=== PATIENT | female | born 1970 | race Hispanic/Latino ===

== ENCOUNTER → 2017-06-13 | Outpatient (CLI) | payer OTHER | LOC: MAMMO 10:47 | PROVIDERS: ATTEND Internal Medicine | DX: Z12.31 Encounter for screening mammogram for malignant neoplasm of breast (principal) | CPT/HCPCS: G0202 ==

== ENCOUNTER → 2019-04-27 | Day surgery (SDC) | payer OTHER ==
[~2019-04-27] MED LIST: FENTANYL CITRATE/PF 100MCG/2 ML INJ ONE; HYOSCYAMINE 0.125 MG TAB ONE; MIDAZOLAM HCL 2 MG/2 ML VIAL ONE; NEXIUM20 MG PO; OMEGA-31000 MG PO; PROPOFOL IV EMULSION 10 MG/ML 50 ML VIAL ONE
--- OUTSIDE RECORDS SUMMARY | 2019-04-27 11:33 | XMS REPORT ---
[facility] Address Unknown Phone Unavailable Care Team Providers Care Global Transportation Manager Name Role Phone Wayne HA Unavailable Unavailable Payers Payer Name Policy Type Policy Number Effective Date Expiration Date Problems This patient has no known problems. Allergies, Adverse Reactions, Alerts Allergy Name Allergy Type Status Severity Reaction(s) Onset Date Inactive Date Treating Clinician Comments No Known Allergies DA Active U 2012-12-16 00:00:00 Medications This patient has no known medications. Results Test Description Test Time Test Comments Text Results Atomic Results Result Comments URINALYSIS COMPLETE 2018-09-28 11:28:00 UA COLOR (test code=COLU) YELLOW YELLOW UA APPEARANCE (test code=APPU) HAZY CLEAR UA GLUCOSE DIPSTICK (test code=DGLUU) norm mg/dL NEGATIVE UA BILIRUBIN DIPSTICK (test code=BILU) NEGATIVE mg/dL NEGATIVE UA KETONE DIPSTICK (test code=KETU) neg mg/dL NEGATIVE UA SPECIFIC GRAVITY (test code=SGU) 1.025 1.001-1.035 UA BLOOD DIPSTICK (test code=STACIE) 10 (Trace) Otilio/uL NEGATIVE UA PH DIPSTICK (test code=MAXIMO) 5.0 5.0-8.0 UA PROTEIN DIPSTICK (test code=PROU) 15 (TRACE) mg/dL Neg-15 UA UROBILINIOGEN DIPSTICK (test code=URO) 1 mg/dL 0.0-0.2 UA NITRITE DIPSTICK (test code=CONSTANCE) NEGATIVE NEGATIVE UA LEUKOCYTE ESTERASE DIPSTICK (test code=LEUU) 25 Sabina/uL (Trace) uL NEGATIVE UA WBC (test code=WBCU) 3-5 per HPF 0-5 UA RBC (test code=RBCU) 0-2 per HPF 0-5 UA EPITHELIAL CELLS (test code=EPIU) MANY per HPF Few UA BACTERIA (test code=BACU) FEW per HPF NONE UA MUCUS (test code=MUCU) MANY per LPF NONE-FEW SPECIMEN COMMENTS: CURINALYSIS W/O [id number] 11:28:00* Test Item Value Reference Range Comments UA MICROSCOPIC NEEDED? (test code=UAMICRO) YES SPECIMEN COMMENTS: CURINALYSIS [id number] 11:09:00* Test Item Value Reference Range Comments UA COLOR (test code=COLU) YELLOW YELLOW UA APPEARANCE (test code=APPU) CLEAR UA GLUCOSE DIPSTICK (test code=DGLUU) norm mg/dL NEGATIVE UA BILIRUBIN DIPSTICK (test code=BILU) NEGATIVE mg/dL NEGATIVE UA KETONE DIPSTICK (test code=KETU) neg mg/dL NEGATIVE UA SPECIFIC GRAVITY (test code=SGU) 1.025 1.001-1.035 UA BLOOD DIPSTICK (test code=STACIE) 10 (Trace) Otilio/uL NEGATIVE UA PH DIPSTICK (test code=MAXIMO) 5.0 5.0-8.0 UA PROTEIN DIPSTICK (test code=PROU) 15 (TRACE) mg/dL Neg-15 UA UROBILINIOGEN DIPSTICK (test code=URO) 1 mg/dL 0.0-0.2 UA NITRITE DIPSTICK (test code=CONSTANCE) NEGATIVE NEGATIVE UA LEUKOCYTE ESTERASE DIPSTICK (test code=LEUU) 25 Sabina/uL (Trace) uL NEGATIVE UA WBC (test code=WBCU) per HPF 0-5 UA RBC (test code=RBCU) per HPF 0-5 UA EPITHELIAL CELLS (test code=EPIU) per HPF Few UA BACTERIA (test code=BACU) per HPF NONE SPECIMEN COMMENTS: CURINALYSIS W/O [id number] 11:09:00* Test Item Value Reference Range Comments UA MICROSCOPIC NEEDED? (test code=UAMICRO) YES SPECIMEN COMMENTS: CURINALYSIS [id number] 11:09:00* Test Item Value Reference Range Comments UA COLOR (test code=COLU) YELLOW YELLOW UA APPEARANCE (test code=APPU) CLEAR UA GLUCOSE DIPSTICK (test code=DGLUU) norm mg/dL NEGATIVE UA BILIRUBIN DIPSTICK (test code=BILU) NEGATIVE mg/dL NEGATIVE UA KETONE DIPSTICK (test code=KETU) neg mg/dL NEGATIVE UA SPECIFIC GRAVITY (test code=SGU) 1.025 1.001-1.035 UA BLOOD DIPSTICK (test code=STACIE) 10 (Trace) Otilio/uL NEGATIVE UA PH DIPSTICK (test code=MAXIMO) 5.0 5.0-8.0 UA PROTEIN DIPSTICK (test code=PROU) 15 (TRACE) mg/dL Neg-15 UA UROBILINIOGEN DIPSTICK (test code=URO) 1 mg/dL 0.0-0.2 UA NITRITE DIPSTICK (test code=CONSTANCE) NEGATIVE NEGATIVE UA LEUKOCYTE ESTERASE DIPSTICK (test code=LEUU) 25 Sabina/uL (Trace) uL NEGATIVE UA WBC (test code=WBCU) per HPF 0-5 UA RBC (test code=RBCU) per HPF 0-5 UA EPITHELIAL CELLS (test code=EPIU) per HPF Few UA BACTERIA (test code=BACU) per HPF NONE SPECIMEN COMMENTS: CURINALYSIS W/O [id number] 11:09:00* Test Item Value Reference Range Comments UA MICROSCOPIC NEEDED? (test code=UAMICRO) YES SPECIMEN COMMENTS: CCOMPREHENSIVE METABOLIC [id number] 09:47:00* Test Item Value Reference Range Comments SODIUM (test code=NA) 142 mmol/L 135-148 POTASSIUM (test code=K) 3.7 mmol/L 3.5-5.1 CHLORIDE (test code=CL) 105 mmol/L 101-109 CARBON DIOXIDE (test code=CO2) 27.6 mmol/L 21-32 ANION GAP (test code=GAP) 13 mmol/L 10-20 GLUCOSE (test code=GLU) 111 mg/dL 74-106 BLOOD UREA NITROGEN (test code=BUN) 13 mg/dL 3-21 CREATININE (test code=CREAT) 0.68 mg/dL 0.55-1.3 BUN/CREATININE RATIO (test code=BUN/CREA) 19.1 10-20 TOTAL PROTEIN (test code=PROT) 7.3 g/dL 6.5-8.4 ALBUMIN (test code=ALB) 3.6 g/dL 3.4-4.8 GLOBULIN (test code=GLOB) 3.7 G/DL 1-10 ALBUMIN/GLOBULIN RATIO (test code=A/G) 1.0 RATIO 0.75-1.50 CALCIUM (test code=CA) 8.5 mg/dL 8.4-10.2 BILIRUBIN TOTAL (test code=BILT) 0.40 mg/dL 0.0-1.0 SGOT/AST (test code=AST) 15 U/L 6-32 SGPT/ALT (test code=ALT) 27 U/L 12-78 Note: Change in REFERENCE RANGE due to new reagent method. ALKALINE PHOSPHATASE TOTAL (test code=ALKP) 87 U/L 38-126 [id number] 09:47:00* Test Item Value Reference Range Comments LIPASE (test code=LIP) 164 U/L 128-270 [id number] 09:47:00* Test Item Value Reference Range Comments MAGNESIUM (test code=MAG) 2.1 mg/dL 1.6-2.3 CPK-MB [id number] 09:47:00* Test Item Value Reference Range Comments CREATINE KINASE (CK) (test code=CK) 260 U/L 26-192 CKMB (test code=CKMBT) 1.9 ng/mL 0.0-5.0 RELATIVE % INDEX (test code=REL%) 0.7 % [id number] 09:47:00* Test Item Value Reference Range Comments TROPONIN-I (test code=TROPI) <0.015 ng/mL 0.00-0.056 PROTHROMBIN [id number] 09:27:00* Test Item Value Reference Range Comments PROTHROMBIN TIME PATIENT (test code=PTP) 10.2 seconds 9.0-13.0 INTERNATIONAL NORMAL RATIO (test code=INR) 0.9 0.8-1.2 The therapeutic range for oral anticoagulant therapy formost indications is an international normalized ratio (INR)of between 2.0 and 3.0. The recommended therapeutic INRrange for various clinical situations is listed below: Clinical Situation INR range Pulmonary e mbolism treatment (2.0-3.0)Venous thrombosis treatmentVenous thrombosis prophylaxis (high risk surgery)Prevention of systemic embolism from: Acute myocardial infarction Valvular heart disease Atrial fibrillation Mechanical prosthetic heart valves (2.5-3.5) IS PATIENT ON ANTICOAGULANTS? NTHROMBOPLASTIN TIME [id number] 09:27:00* Test Item Value Reference Range Comments THROMBOPLASTIN TIME PARTIAL (test code=PTT) 25.0 seconds 25.5-34.3 Therapeutic Range for patients on Heparin Therapy is 2 to2.5 times their baseline PTT level. IS PATIENT ON ANTICOAGULANTS? NCOMPREHENSIVE METABOLIC [id number] 09:27:00 * Test Item Value Reference Range Comments SODIUM (test code=NA) 142 mmol/L 135-148 POTASSIUM (test code=K) 3.7 mmol/L 3.5-5.1 CHLORIDE (test code=CL) 105 mmol/L 101-109 CARBON DIOXIDE (test code=CO2) 27.6 mmol/L 21-32 ANION GAP (test code=GAP) 13 mmol/L 10-20 GLUCOSE (test code=GLU) 111 mg/dL 74-106 BLOOD UREA NITROGEN (test code=BUN) 13 mg/dL 3-21 CREATININE (test code=CREAT) 0.68 mg/dL 0.55-1.3 BUN/CREATININE RATIO (test code=BUN/CREA) 19.1 10-20 TOTAL PROTEIN (test code=PROT) gram/dL 6.4-8.2 ALBUMIN (test code=ALB) g/dL 3.4-5.0 GLOBULIN (test code=GLOB) g/dL 2.7-4.2 ALBUMIN/GLOBULIN RATIO (test code=A/G) 0.75-1.50 CALCIUM (test code=CA) 8.5 mg/dL 8.4-10.2 BILIRUBIN TOTAL (test code=BILT) mg/dL 0.2-1.2 SGOT/AST (test code=AST) IUnit/L 15-37 SGPT/ALT (test code=ALT) U/L 10-69 ALKALINE PHOSPHATASE TOTAL (test code=ALKP) IUnit/L 45-117 [id number] 09:27:00* Test Item Value Reference Range Comments LIPASE (test code=LIP) Unit/L 144-286 [id number] 09:27:00* Test Item Value Reference Range Comments MAGNESIUM (test code=MAG) mg/dL 1.8-2.4 CPK-MB [id number] 09:27:00* Test Item Value Reference Range Comments CREATINE KINASE (CK) (test code=CK) IUnit/L 26-208 CKMB (test code=CKMBT) ng/mL 0-6.0 RELATIVE % INDEX (test code=REL%) % [id number] 09:27:00* Test Item Value Reference Range Comments TROPONIN-I (test code=TROPI) ng/mL 0-0.045 - XR CHEST 1 [id number] 09:26:00 Name: TORREY TRACY [facility] : 1970 Age/S:48 /F [address] [facility] Unit#:[id number] Loc: [place] [address] Phys: Suze Kaiser MD Dis Date: PHONE #: [phone] Status: REG ER FAX #: [phone] Exam Date: 09/28/2018 Reason: CASTILLO, arm tingling EXAMS: CPT CODE: [id number] XR CHEST 1 V 31419 HISTORY: Headache and arm tingling. COMPARISON: None available. No acute infiltrates, effusion or congestion is noted. Suboptimal inspiration with dependent changes. The cardiac and mediastinal silhouette are within normal limits. IMPRESSION: No acute infiltrates, effusion or congestion. at 0926 Reported and signed by: Corey Martin M.D. CC: Suze Kaiser MD Technologist: Tracy Boyer Trnscrpt Data: 09/28/2018 (925) JennifferTH4 PAGE 1 Signed Report CBC W/AUTO [id number] 09:25:00* Test Item Value Reference Range Comments WHITE BLOOD CELL (test code=WBC) 5.7 K/mm3 4.5-12.5 RED BLOOD CELL (test code=RBC) 4.71 mill/mm3 3.7-5.2 HEMOGLOBIN (test code=HGB) 13.6 gram/dL 11.5-15.5 HEMATOCRIT (test code=HCT) 42.5 % 36.0-46.0 MEAN CELL VOLUME (test code=MCV) 90.2 fL 80-98 MEAN CELL HGB (test code=MCH) 28.9 picogram 27.0-33.0 MEAN CELL HGB CONCETRATION (test code=MCHC) 32.0 gram/dL 33.0-36.0 RED CELL DISTRIBUTION WIDTH (test code=RDW) 14.9 % 11.6-16.2 RED CELL DISTRIBUTION WIDTH SD (test code=RDW-SD) 48.7 fL 39.1-52.0 PLATELET COUNT (test code=PLT) 194 K/mm3 150-450 MEAN PLATELET VOLUME (test code=MPV) 10.8 fL 6.7-11.0 NEUTROPHIL % (test code=NT%) 49.5 % 39.0-69.0 LYMPHOCYTE % (test code=LY%) 40.5 % 25.0-55.0 MONOCYTE % (test code=MO%) 7.7 % 0.0-10.0 EOSINOPHIL % (test code=EO%) 1.9 % 0.0-5.0 BASOPHIL % (test code=BA%) 0.4 % 0.0-1.0 NEUTROPHIL # (test code=NT#) 2.83 K/mm3 1.8-7.7 LYMPHOCYTE # (test code=LY#) 2.31 K/mm3 1.0-5.0 MONOCYTE # (test code=MO#) 0.44 K/mm3 0-0.8 EOSINOPHIL # (test code=EO#) 0.11 K/mm3 0.0-0.5 BASOPHIL # (test code=BA#) 0.02 K/mm3 0.0-0.2 MANUAL DIFF REQUIRED (test code=MDIFF) NO - CT HEAD/BRAIN W/O [id number] 09:25:00 Name: TORREY TRACY [facility] : 1970 Age/S: 48 / F [address] [facility] Unit #: [id number] Loc: [place] [address] Phys: Suze Kaiser MD Acct: [id number] Dis Date: Status: REG ER PHONE #: [phone] Exam Date: 09/28/2018917 FAX #: [phone] Reason: CASTILLO, arm tingling EXAMS: CPT CODE: [id number] CT HEAD/BRAIN W/O CONT 23854 HISTORY: Arm tingling. COMPARISON: None available. CT brain without contrast: Automated exposure control. No acute intracranial bleeds or extra-axial collections and there is no acute territorial vascular infarction. Calcified granuloma in the right frontal lobe with. This may represent sequela of cysticercosis. The lucas-white matter differentiation is preserved. The sulci, gyri, ventricles and subarachnoid spaces and the basilar cisterns are normal for patient's age. No herniation or hydrocephalus or midline shift is noted. Fourth ventricle remains midline. Portions of the visualized paranasal sinuses are unremarkable. No obvious bony calvarial defect is noted. IMPRESSION: No acute intracranial bleeds or extra-axial collections. No acute territorial vascular infarction. No herniation or h ydrocephalus or midline shift. at 0925 Reported and thanh d by: Corey Martin M.D. CC: Suze Kaiser MD Technologist:Tracy Boyer CTDI: DLP: Trnscb Date/Time: 09/28/2018 (924) t.SDR.TH4 Orig Print D/T: S: 09/28/2018 (927) PAGE 1 Signed Report MAMMOGRAPHY DIGITAL SCR [place] [address] Patient Name: TORREY TRACY MR #: [id number] : 1970 Age/Sex: 47/F Req #: [id number] Adm Physician: Ordered by: JOSE HA MD Report #: [id number] Location: MAMMO Room/Bed: Procedure: [id number] MG/MAMMOGRAPHY DIGITAL SCR BI LAT Exam Date: 06/13/17 Exam Time: 1050 REPORT STATUS: Signed #[id number] - [id number] #BILATERAL DIGITAL SCREENING M AMMOGRAM WITH CAD: 06/13/2017 CLINICAL: Routine screening. No prior exam s were available for comparison. Current study contains 4 films. There are scattered fibroglandular elements in both breasts. Current study was also ev aluated with a Computer Aided Detection (CAD) system. There are benign calci fications in both breasts. No significant masses, calcifications, or other f indings are seen in either breast. IMPRESSION: BENIGN There is no mammo graphic evidence of malignancy. A 1 year screening mammogram is recommended. The patient will be notified by letter of the results. Terry raines/pj:06/23/2017 11:38:58 Industrial Engineering Director: En OVIEDO(R)(M), [facility] letter sent: Normal Exam Mammogram BI-RADS: 2 Benign Dictated By: TERRY VALLECILLO DO Electro nically Signed By: TERRY VALLECILLO DO on 06/23/17 1138 Transcribed By: PJ on 06/23/17 1138 COPY TO: JOSE HA MD
[2019-04-27 17:05] VITALS: BP 106/74
--- NOTE | 2019-04-27 19:43 | Operative Report ---
DATE OF PROCEDURE: 04/27/2019 SURGEON: Cristofer Blum MD PROCEDURE: Colonoscopy with polypectomy. INDICATIONS FOR COLONOSCOPY: Colorectal cancer screening. MEDICATIONS: The patient was done under MAC, please see anesthesiologist's note. PROCEDURE IN DETAIL: With the patient in left lateral decubitus position, the flexible fiberoptic Olympus colonoscope was inserted into the rectum with ease and advanced all the way to the cecum. It was then withdrawn slowly. Mucosa overlying the cecum and ascending colon appeared to be within normal limits. One polyp was hot biopsied from the proximal transverse colon. The descending appeared to be within normal limits. One polyp was hot biopsied from the distal sigmoid. The rectum appeared to be within normal limits. The scope was then retroflexed into the distal rectum and small internal hemorrhoids were noted, none of which was actively bleeding. The scope was then straightened out. It was subsequently withdrawn. The patient tolerated the procedure well. IMPRESSION: 1. Transverse colon polyp, hot biopsied. 2. Sigmoid colon polyp, hot biopsied. 3. Internal hemorrhoids, none actively bleeding. PLAN: Follow up histology. Initiate high-fiber, low-fat diet. Initiate high-fiber supplement. The patient might benefit from a followup colonoscopy in 3 to 5 years. Cristofer Blum MD [facility] [place] /[id number] cc: Roby Castillo DO
== END | disposition home or self-care (01) ==
LOC: OR 11:28
PROVIDERS: ATTEND Internal Medicine Gastroenterology
DX: Z12.11 Encounter for screening for malignant neoplasm of colon (principal); K63.5 Polyp of colon; K59.09 Other constipation; K64.8 Other hemorrhoids; Z01.810 Encounter for preprocedural cardiovascular examination; Z68.36 Body mass index [BMI] 36.0-36.9, adult
CPT/HCPCS: 45384; 93005; J2250; J3010